=== PATIENT | female | born 1965 | race Caucasian/White ===

== ENCOUNTER 2017-08-13 08:28 | Emergency (ER) | payer BC, OTHER ==
[2017-08-13] MEDS: METOCLOPRAMIDE 10 MG INJ IV (10:38)
[2017-08-13] MEDS: SOD CHLORIDE 0.9% 1,000 ML IV (10:38)
[2017-08-13] MEDS: KETOROLAC 30 MG INJ IV (10:38)
[2017-08-13] MEDS: DIPHENHYDRAMINE 50 MG INJ IV (10:38)
[2017-08-13 10:48] LABS: URINE BLOOD (Dip) POC Trace-intact (NEGATIVE); URINE GLUCOSE (Dip) POC Negative (NEGATIVE); URINE KETONES (Dip) POC Negative (NEGATIVE); URINE LEUKOCYTE EST (Dip) POC Negative (NEGATIVE); URINE NITRITE (Dip) POC Negative (NEGATIVE); URINE TOTAL PROTEIN POC Negative (NEGATIVE)
== END 2017-08-13 12:11 | disposition home or self-care (01) ==
LOC: FTE 08:28
DX: R51 Headache (principal)
CPT/HCPCS: 70450; 81003; 96374; 96375; 99285-25